=== PATIENT | female | born 1965 | race Native Hawaiian/Other Pacific Islander ===

== ENCOUNTER 2021-04-24 11:26 | Emergency (ER) | payer OTHER ==
--- NOTE | 2021-04-24 12:30 | XRAY Report ---
PROCEDURE: Elbow 3 View LT INDICATIONS: trauma/pain TECHNIQUE: 3 views of the elbow were acquired. COMPARISON: None FINDINGS: Bones: No fractures or dislocations. No suspicious bony lesions. Soft tissues: No elbow joint effusion. No suspicious soft tissue calcifications. IMPRESSION: No evidence acute bony abnormality of the left elbow. If clinical suspicion and/or symptoms persist, further assessment with repeat plain films or advanced imaging (e.g., CT, MRI, or bone scan) may be helpful for further assessment. Reviewed by: Balta Delgado MD on 04/24/2021 12:29 PM PDT Approved by: Balta Delgado MD on 04/24/2021 12:29 PM PDT Station ID: [id number]
--- NOTE | 2021-04-24 13:07 | ED Physician Documentation ---
History of Present Illness - Stated complaint Stated Complaint: GLF/LT ARM PX - Chief complaint Chief Complaint: Trauma Ext - History obtained from History obtained from: Patient - History of Present Illness Timing: How many days ago (3) Pain level max: 6 Pain level now: 3 - Additonal information Additional information: Patient is a 56-year-old female who works at the [email or web address], she states that she was walking when she tripped over a rolled up mat and landed on the floor. She states she has a bruise to her left elbow and a bruise to her right leg. She states worse with movement, better with rest. It occurred 3 days ago. Her work told her to come and start the L&I paperwork today. No head, neck, back pain. No loss of consciousness. No vomiting. Review of Systems Constitutional: denies: Fever, Chills GI: denies: Vomiting, Diarrhea Skin: denies: Rash Musculoskeletal: denies: Neck pain, Back pain Neurologic: denies: Focal weakness, Numbness, Confused, Headache, Head injury PD PAST MEDICAL HISTORY - Past Medical History Past Medical History: No - Past Surgical History Past Surgical History: No - Present Medications Home Medications: Ambulatory Orders Medication Instructions Recorded Confirmed metFORMIN [Glucophage] 500 mg PO DAILY 04/24/21 04/24/21 - Allergies Allergies/Adverse Reactions: Allergies Allergy/AdvReac Type Severity Reaction Status Date / Time No Known Drug Allergies Allergy Verified 04/24/21 11:46 - Living Situation Living Situation: reports: With family Living Arrangement: reports: At home - Social History Does the pt have substance abuse?: No - Family History Family history: reports: Non contributory PD ED PE NORMAL - Vitals Vital signs reviewed: Yes - General General: Alert and oriented X 3, No acute distress - HEENT HEENT: Moist mucous membranes - Neck Neck: Supple, no meningeal sign - Cardiac Cardiac: RRR - Respiratory Respiratory: No respiratory distress, Clear bilaterally - Abdomen Abdomen: Soft, Non tender, Non distended - Back Back: No spinal TTP - Derm Derm: Warm and dry - Extremities Extremities: Other (Mild ecchymosis and an abrasion to the left elbow. Full range of motion without pain. Patient also has a small area of contusion to the right medial calf. No bony tenderness. Normal exam of the knee.) - Neuro Neuro: Alert and oriented X 3 - Psych Psych: Normal mood, Normal affect Results - Vitals Vitals: Vital Signs - 24 hr 04/24/21 04/24/21 11:40 13:10 Temperature 36.0 C L 36.4 C L Heart Rate 55 L 62 Respiratory 18 16 Rate Blood Pressure 145/102 H 147/85 H O2 Saturation 98 97 Oxygen O2 Source Room air - Rads (name of study) Left elbow x-ray Radiology: Final report received, EMP read contemporaneously, See rad report (No acute abnormality) PD MEDICAL DECISION MAKING - ED course Complexity details: reviewed results, re-evaluated patient, considered differential, d/w patient ED course: Patient is ambulating without difficulty. Normal gait. No limp. Left elbow x- ray is negative. Using the arm freely. L&I paperwork filled out. We will have the patient return to work in 2 to 3 days when the muscle soreness has resolved. Patient counseled regarding signs and symptoms for which I believe and urgent re-evaluation would be necessary. Patient with good understanding of and agreement to plan and is comfortable going home at this time This document was made in part using voice recognition software. While efforts are made to proofread this document, sound alike and grammatical errors may occur. Departure - Departure Disposition: 01 Home, Self Care Clinical Impression: Contusion of soft tissue Fall Qualifiers: Encounter type: initial encounter Qualified Code(s): W19.XXXA - Unspecified fall, initial encounter Condition: Good Instructions: ED Contusion Soft Tissue Follow-Up: your,doctor in 1 week [Other] Comments: You can continue motrin and tylenol as needed for pain. Follow up with your doctor for further care. Return if you worsen. Forms: Activity restrictions
[2021-04-24 13:11] VITALS: BP 147/85
== END 2021-04-24 13:22 | disposition home or self-care (01) ==
LOC: ED 11:26
DX: S80.11XA Contusion of right lower leg, initial encounter (principal); S50.312A Abrasion of left elbow, initial encounter; W01.198A Fall on same level from slipping, tripping and stumbling with subsequent striking against other object, initial encounter; Y92.59 Other trade areas as the place of occurrence of the external cause; Y99.0 Civilian activity done for income or pay
CPT/HCPCS: 1040M; 73080

== ENCOUNTER 2022-08-03 09:40 | Emergency (ER) | payer MEDICAID ==
--- NOTE | 2022-08-03 09:59 | ED Physician Documentation ---
PD HPI DYSPNEA - Stated complaint Stated Complaint: SOA - Chief complaint Chief Complaint: Resp - History obtained from History obtained from: Patient - History of Present Illness Timing - onset: How many days ago, How many months ago (4 months of some couhg, deloris at night, with congestion and some dyspnea/wheeze with activity. Worse the past several days. Also h/o borderline high bp in the past.) Timing - onset during: Rest (notices more of the cough and congestion at night lying down.) Timing - duration: Months Timing - details: Intermittant Inciting event(s): No: URI, Exposure (ie smoke) Improved by: Rest Worsened by: Laying flat, Coughing Associated symptoms: Cough, Hemoptysis (last night). No: Fever, Wheezing Similar symptoms before: Has not had sx before Recently seen: Not recently seen Review of Systems Constitutional: denies: Fever, Chills, Myalgias Nose: denies: Rhinorrhea / runny nose, Congestion Throat: denies: Sore throat Cardiac: denies: Chest pain / pressure, Palpitations, Pedal edema, Calf pain Respiratory: reports: Dyspnea, Cough. denies: Wheezing Skin: denies: Rash, Lesions Musculoskeletal: denies: Extremity swelling Neurologic: denies: Focal weakness, Numbness, Headache PD PAST MEDICAL HISTORY - Past Medical History Past Medical History: Yes Cardiovascular: High cholesterol Respiratory: Asthma Neuro: None Endocrine/Autoimmune: Type 2 diabetes GI: None : None HEENT: None Psych: None Musculoskeletal: None Derm: None - Past Surgical History Past Surgical History: No Derm: Other - Present Medications Home Medications: Ambulatory Orders Medication Instructions Recorded Confirmed metFORMIN [Glucophage] 500 mg PO DAILY 04/24/21 08/03/22 Albuterol Sulf [Ventolin Hfa 2 - 3 puffs INH BID 30 Days #1 each 08/03/22 Inhaler] Cetirizine [ZyrTEC] 10 mg PO DAILY 30 Days #30 tablet 08/03/22 Fluticasone 220 Mcg [Flovent] 1 inh PO BID 60 Days #12 gm 08/03/22 Losartan Potassium 25 mg PO DAILY 30 Days #30 tablet 08/03/22 - Allergies Allergies/Adverse Reactions: Allergies Allergy/AdvReac Type Severity Reaction Status Date / Time No Known Drug Allergies Allergy Verified 08/03/22 09:53 - Social History Does the pt smoke?: No Smoking Status: Never smoker Does the pt drink ETOH?: No Does the pt have substance abuse?: No - Immunizations Immunizations are current?: No - POLST Patient has POLST: No PD ED PE NORMAL - Vitals Vital signs reviewed: Yes - General General: Alert and oriented X 3, No acute distress, Well developed/nourished - HEENT HEENT: Pharynx benign - Neck Neck: Supple, no meningeal sign, No adenopathy - Cardiac Cardiac: RRR, No murmur - Respiratory Respiratory: No respiratory distress, Clear bilaterally - Abdomen Abdomen: Soft, Non tender - Derm Derm: Normal color, Warm and dry - Extremities Extremities: No edema, No calf tenderness / cord - Neuro Neuro: Alert and oriented X 3, No motor deficit, Normal speech Results - Vitals Vitals: Oxygen O2 Source Room air - Labs Labs: Laboratory Tests 08/03/22 08/03/22 10:21 10:21 WBC 5.1 RBC 4.76 Hgb 13.2 Hct 41.4 MCV 87.0 MCH 27.7 MCHC 31.9 L RDW 13.6 Plt Count 279 MPV 9.6 Neut # (Auto) 2.5 Lymph # (Auto) 1.7 [place] # (Auto) 0.4 Eos # (Auto) 0.5 Baso # (Auto) 0.1 Absolute Nucleated RBC 0.00 Nucleated RBC % 0.0 Sodium 140 Potassium 4.2 Chloride 102 Carbon Dioxide 29 Anion Gap 9.0 BUN 19 Creatinine 0.6 Estimated GFR (MDRD) 102 Glucose 141 H Calcium 9.5 Total Bilirubin 0.7 AST 32 ALT 38 Alkaline Phosphatase 77 Total Protein 7.8 Albumin 4.0 Globulin 3.8 Albumin/Globulin Ratio 1.1 Lipase 38 - Rads (name of study) chest xray Radiology: Prelim report reviewed (no acute process), See rad report PD MEDICAL DECISION MAKING - ED course Complexity details: reviewed results, considered differential (longer term cough, congestion more likely c/w llergies/environmental though could be prison post viral cough. Has h/o elevated BP not on meds. ), d/w patient Departure - Departure Disposition: 01 Home, Self Care Clinical Impression: Persistent cough for 3 weeks or longer, Congestion of upper airway, Elevated blood pressure reading Condition: Stable Record reviewed to determine appropriate education?: Yes Instructions: ED Reactive Airway Disease, ED Hypertension New Begin Tx Prescriptions: Fluticasone 220 Mcg [Flovent] 1 inh PO BID 60 Days #12 gm Losartan Potassium 25 mg PO DAILY 30 Days #30 tablet Albuterol Sulf [Ventolin Hfa Inhaler] 2 - 3 puffs INH BID 30 Days #1 each Cetirizine [ZyrTEC] 10 mg PO DAILY 30 Days #30 tablet Comments: Your chest x-ray is clear without any signs of pneumonia, heart failure, tumors etc. Your basic blood counts and kidney function electrolytes are good. At this point I would treated as reactive airway disease/allergies with an inhaled albuterol twice daily and also every 6 hours if needed for wheeziness in addition. Also add a inhaled steroid fluticasone twice daily for 1 to 2 months. Cetirizine antihistamine daily for a month. See how much improvement you have in your congestion and cough with these medications over the next several weeks to a month. I also started you on a low-dose blood pressure medicine losartan 25 mg daily. Follow-up with your primary care when you are able to see him next for further medications/adjustments/any other testing. I sent your prescriptions to [facility] in [place]. Discharge Date/Time: 08/03/22 11:42
[2022-08-03] MEDS ORDERED: ALBUTEROL 1 PUFF INH STA (10:27)
[2022-08-03 10:30] LABS: BASOPHILS # (AUTO) 0.1 10^3/uL (0.0-0.1); EOSINOPHILS # (AUTO) 0.5 10^3/uL (0.0-0.7); EOSINOPHILS % (AUTO) 9.2 %; HCT - HEMATOCRIT 41.4 % (37.0-47.0); HGB - HEMOGLOBIN 13.2 g/dL (12.0-16.0); LYMPHOCYTES # (AUTO) 1.7 10^3/uL (1.5-3.5); LYMPHOCYTES % (AUTO) 33.3 %; MEAN CORPUSCULAR HEMOGLOBIN 27.7 pg (27.0-31.0); MEAN CORPUSCULAR HGB CONC 31.9 g/dL (32.0-36.0); MEAN PLATELET VOLUME 9.6 fL (7.9-10.8); MONOCYTES # (AUTO) 0.4 10^3/uL (0.0-1.0); MONOCYTES % (AUTO) 8.4 %; NEUTROPHILS # (AUTO) 2.5 10^3/uL (1.5-6.6); NEUTROPHILS % (AUTO) 47.9 %; PLT - PLATELET COUNT 279 10^3/uL (130-450); RED BLOOD COUNT 4.76 10^6/uL (4.20-5.40); RED CELL DISTRIBUTION WIDTH 13.6 % (12.0-15.0); WHITE BLOOD COUNT 5.1 x10^3/uL (4.8-10.8)
[2022-08-03 10:44] LABS: ALBUMIN/GLOBULIN RATIO 1.1 (1.0-2.2); BILIRUBIN,TOTAL 0.7 mg/dL (0.2-1.0); CALCIUM 9.5 mg/dL (8.5-10.3); CREATININE 0.6 mg/dL (0.4-1.0); POTASSIUM 4.2 mmol/L (3.5-5.0); TOTAL PROTEIN 7.8 g/dL (6.7-8.2)
--- NOTE | 2022-08-03 10:53 | XRAY Report ---
PROCEDURE: Chest 1 View X-Ray INDICATIONS: chest pain TECHNIQUE: One view of the chest was acquired. COMPARISON: None. FINDINGS: Surgical changes and devices: None. Lungs and pleura: No pleural effusions or pneumothorax. Lungs are clear. Mediastinum: Mediastinal contours appear normal. Heart size is normal. Bones and chest wall: No suspicious bony lesions. Overlying soft tissues appear unremarkable. IMPRESSION: No acute cardiopulmonary abnormality identified. CT chest could be considered for further evaluation. Reviewed by: Elan Hutcihns MD on 08/03/2022 10:51 AM [facility] Approved by: Elan Hutchins MD on 08/03/2022 10:51 AM [facility] Station ID: [id number]
[2022-08-03 11:43] VITALS: BP 147/88
== END 2022-08-03 11:42 | disposition home or self-care (01) ==
LOC: ED 09:40
DX: R05.3 Chronic cough (principal); R09.81 Nasal congestion; R03.0 Elevated blood-pressure reading, without diagnosis of hypertension
CPT/HCPCS: 36415; 80053; 83690; 85025; 94640; 94664; 99282; 99284

== ENCOUNTER 2022-08-10 07:15 | Emergency (ER) | payer MEDICAID ==
[2022-08-10 07:33] VITALS: BP 148/89
[2022-08-10 07:59] LABS: BASOPHILS # (AUTO) 0.1 10^3/uL (0.0-0.1); BASOPHILS % (AUTO) 0.5 %; EOSINOPHILS # (AUTO) 0.2 10^3/uL (0.0-0.7); EOSINOPHILS % (AUTO) 1.8 %; HCT - HEMATOCRIT 39.7 % (37.0-47.0); HGB - HEMOGLOBIN 12.4 g/dL (12.0-16.0); LYMPHOCYTES # (AUTO) 1.9 10^3/uL (1.5-3.5); LYMPHOCYTES % (AUTO) 15.8 %; MEAN CORPUSCULAR HEMOGLOBIN 26.9 pg (27.0-31.0); MEAN CORPUSCULAR HGB CONC 31.2 g/dL (32.0-36.0); MEAN CORPUSCULAR VOLUME 86.1 fL (81.0-99.0); MEAN PLATELET VOLUME 9.7 fL (7.9-10.8); MONOCYTES # (AUTO) 1.2 10^3/uL (0.0-1.0); MONOCYTES % (AUTO) 9.8 %; NEUTROPHILS # (AUTO) 8.4 10^3/uL (1.5-6.6); NEUTROPHILS % (AUTO) 71.8 %; PLT - PLATELET COUNT 270 10^3/uL (130-450); RED BLOOD COUNT 4.61 10^6/uL (4.20-5.40); WHITE BLOOD COUNT 11.8 x10^3/uL (4.8-10.8)
[2022-08-10 08:09] LABS: BILIRUBIN,URINE NEGATIVE (NEGATIVE); GLUCOSE, URINE (UA) NEGATIVE (NEGATIVE); KETONES,URINE (UA) NEGATIVE (NEGATIVE); LEUKOCYTE ESTERASE, URINE NEGATIVE (NEGATIVE); NITRITE,URINE NEGATIVE (NEGATIVE); OCCULT BLOOD,URINE SMALL (NEGATIVE); PROTEIN,URINE NEGATIVE (NEGATIVE); UROBILINOGEN,URINE 0.2 (NORMAL) E.U./dL (NORMAL)
[2022-08-10 08:11] LABS: CLARITY,URINE CLEAR (CLEAR)
[2022-08-10 08:13] LABS: ALBUMIN/GLOBULIN RATIO 1.1 (1.0-2.2); CALCIUM 9.2 mg/dL (8.5-10.3); CREATININE 0.6 mg/dL (0.4-1.0); POTASSIUM 4.1 mmol/L (3.5-5.0); TOTAL PROTEIN 7.7 g/dL (6.7-8.2)
[2022-08-10 08:21] LABS: BACTERIA,URINE Rare /HPF (None Seen); RBC,URINE 0-5 /HPF (0-5); SQUAMOUS EPITHELIAL CELL,UR RARE Squamous (<= Few); WBC,URINE 0-3 /HPF (0-5)
--- NOTE | 2022-08-10 08:26 | ED Physician Documentation ---
PD HPI ABD PAIN - Stated complaint Stated Complaint: LT SIDE ABD PX - Chief complaint Chief Complaint: Abd Pain - History obtained from History obtained from: Patient - History of Present Illness Timing - onset: How many days ago (3), How many years ago Timing - duration: Days (3) Timing - details: Gradual onset Pain level max: 5 Pain level now: 5 Quality: Aching, Pain Location: Epigastric, LUQ Radiation: No: Chest, , Lower back, Left flank, Left shoulder, Right flank, Right shoulder, Upper back Improved by: Other (nothing) Worsened by: Eating, Breathing, Palpation Associated symptoms: Nausea. No: Fever, Vomiting, Hematemesis, Diarrhea, Constipation, Melena, Hematochezia, Dysuria, Hematuria, Chest pain Similar symptoms before: Has not had sx before Recently seen: Not recently seen Review of Systems Constitutional: denies: Fever, Chills Respiratory: denies: Cough GI: denies: Vomiting, Diarrhea Skin: denies: Rash Musculoskeletal: denies: Neck pain, Back pain Neurologic: denies: Headache PD PAST MEDICAL HISTORY - Past Medical History Cardiovascular: High cholesterol Respiratory: Asthma Neuro: None Endocrine/Autoimmune: Type 2 diabetes GI: None : None HEENT: None Psych: None Musculoskeletal: None Derm: None - Past Surgical History Past Surgical History: No Derm: Other - Present Medications Home Medications: Ambulatory Orders Medication Instructions Recorded Confirmed metFORMIN [Glucophage] 500 mg PO DAILY 04/24/21 08/03/22 Albuterol Sulf [Ventolin Hfa 2 - 3 puffs INH BID 30 Days #1 each 08/03/22 Inhaler] Cetirizine [ZyrTEC] 10 mg PO DAILY 30 Days #30 tablet 08/03/22 Fluticasone 220 Mcg [Flovent] 1 inh PO BID 60 Days #12 gm 08/03/22 Losartan Potassium 25 mg PO DAILY 30 Days #30 tablet 08/03/22 Amox/Clav 875/125 [Augmentin] 1 each PO Q8H #30 tablet 08/10/22 - Allergies Allergies/Adverse Reactions: Allergies Allergy/AdvReac Type Severity Reaction Status Date / Time No Known Drug Allergies Allergy Verified 08/10/22 07:32 - Social History Does the pt smoke?: No Smoking Status: Never smoker Does the pt drink ETOH?: No Does the pt have substance abuse?: No - Immunizations Immunizations are current?: No - POLST Patient has POLST: No PD ED PE NORMAL - Vitals Vital signs reviewed: Yes - General General: Alert and oriented X 3, No acute distress, Well developed/nourished - HEENT HEENT: Moist mucous membranes - Neck Neck: Supple, no meningeal sign - Cardiac Cardiac: RRR, Strong equal pulses - Respiratory Respiratory: No respiratory distress, Clear bilaterally - Abdomen Abdomen: Soft, Non distended, Other (Tender palpation epigastric without peritoneal signs.) - Back Back: No CVA TTP, No spinal TTP - Derm Derm: Warm and dry - Extremities Extremities: No edema, No calf tenderness / cord - Neuro Neuro: Alert and oriented X 3 - Psych Psych: Normal mood, Normal affect Results - Vitals Vitals: Vital Signs - 24 hr 08/10/22 07:30 Temperature 36.5 C Heart Rate 74 Respiratory 14 Rate Blood Pressure 148/89 H O2 Saturation 97 Oxygen O2 Source Room air - Labs Labs: Laboratory Tests 08/10/22 08/10/22 08/10/22 07:45 07:52 07:52 WBC 11.8 H RBC 4.61 Hgb 12.4 Hct 39.7 MCV 86.1 MCH 26.9 L MCHC 31.2 L RDW 14.0 Plt Count 270 MPV 9.7 Neut # (Auto) 8.4 H Lymph # (Auto) 1.9 [place] # (Auto) 1.2 H Eos # (Auto) 0.2 Baso # (Auto) 0.1 Absolute Nucleated RBC 0.00 Nucleated RBC % 0.0 Sodium 137 Potassium 4.1 Chloride 102 Carbon Dioxide 26 Anion Gap 9.0 BUN 14 Creatinine 0.6 Estimated GFR (MDRD) 102 Glucose 126 H Calcium 9.2 Total Bilirubin 1.0 AST 22 ALT 29 Alkaline Phosphatase 78 Total Protein 7.7 Albumin 4.0 Globulin 3.7 Albumin/Globulin Ratio 1.1 Lipase 36 Urine Color YELLOW Urine Clarity CLEAR Urine pH 6.0 Ur Specific [place] 1.020 Urine Protein NEGATIVE Urine Glucose (UA) NEGATIVE Urine Ketones NEGATIVE Urine Occult Blood SMALL H Urine Nitrite NEGATIVE Urine Bilirubin NEGATIVE Urine Urobilinogen 0.2 (NORMAL) Ur Leukocyte Esterase NEGATIVE Urine RBC 0-5 Urine WBC 0-3 Ur Squamous Epith Cells RARE Squamous Urine Bacteria Rare Ur Microscopic Review INDICATED Urine Culture Comments NOT INDICATED - Rads (name of study) CT abdomen pelvis Radiology: Final report received, EMP read contemporaneously, See rad report PD MEDICAL DECISION MAKING - ED course Complexity details: reviewed results, re-evaluated patient, considered differential, d/w patient ED course: 57-year-old female presents the emergency department left-sided abdominal pain. CT scan shows diverticulitis. Discussed risks and benefits of treatment with antibiotics. Patient elects to take the antibiotics. We will place her on antibiotics for home. Understands the risks of C. difficile. Also informed of the left breast nodule incidentally found on CT. She will follow-up with her doctor for further care of this. Patient is well-appearing, nontoxic. Afebrile. Declines pain medication or nausea medication for home. Patient counseled regarding signs and symptoms for which I believe and urgent re-evaluat ion would be necessary. Patient with good understanding of and agreement to plan and is comfortable going home at this time This document was made in part using voice recognition software. While efforts are made to proofread this document, sound alike and grammatical errors may occur. Departure - Departure Disposition: 01 Home, Self Care Clinical Impression: Diverticulitis Condition: Good Instructions: ED Diverticulitis Follow-Up: your,doctor in 1 week [Other] Prescriptions: Amox/Clav 875/125 [Augmentin] 1 each PO Q8H #30 tablet Comments: Your prescriptions were sent to [facility] in [place]. Please follow-up with your doctor for further care. This appears to be diverticulitis on your CT scan. You also have what appears to be a small nodule at the left lateral teo ast, partially visualized, it is recommended that you have a mammogram and/or ultrasound as ordered by your doctor. Please return if you worsen. IMPRESSION: 1. Descending colon diverticulitis. No abscess. 2. Small nodule at the left lateral breast partially visualized. This could represent a benign finding such as cyst or lymph node. However, mass cannot be excluded. Recommend diagnostic mammogram and possible ultrasound. Discharge Date/Time: 08/10/22 10:51
[2022-08-10] MEDS ORDERED: iohexoL-300 100 ML VIAL ONE (09:21)
[2022-08-10] MEDS: iohexoL-300 100 ML VIAL IVP ONE (09:49)
--- NOTE | 2022-08-10 10:05 | CT Report ---
PROCEDURE: ABDOMEN/PELVIS W INDICATIONS: epigastric/L sided abd pain x3days CONTRAST: 100 cc Omnipaque 300. TECHNIQUE: After the administration of intravenous contrast, 5 mm thick sections acquired from the diaphragms to the symphysis. 5 mm thick coronal and sagittal reformats were acquired. For radiation dose reducti on, the following was used: automated exposure control, adjustment of mA and/or kV according to christopher ent size. COMPARISON: CXR 08/03/2022 FINDINGS: Image quality: Excellent. ABDOMEN: Lung bases: No pleural effusion. Left basilar atelectasis. Heart size is normal. Small nodule at the left lateral breast partially visualized measuring 0.6 cm, (6/). Solid organs: Liver and spleen are normal in size and enhancement. No focal lesion. Gallbladder is u nremarkable. Biliary system is non dilated. Pancreas enhances normally. No adrenal nodules. Kidne ys demonstrate normal size and enhancement, without hydronephrosis. Peritoneum and bowel: Diverticulosis. Stranding about the descending colon, (3/43). There are diverti culi at this site. No fluid collection. The appendix is not dilated. No small bowel obstruction. No a scites. No pneumoperitoneum. Nodes and vessels: No retroperitoneal or mesenteric adenopathy by size criteria. Aorta and inferior vena cava are normal in size. Miscellaneous: No ventral hernias. PELVIS: Genitourinary: Bladder wall thickness is normal. Anteverted uterus. Miscellaneous: No inguinal hernias or adenopathy. Bones: No suspicious bony lesions. Sclerosis at the SI joints. Suspect iliac is iliacus condensans. No vertebral body compression fractures. Vertebral body osteophytes. IMPRESSION: 1. Descending colon diverticulitis. No abscess. 2. Small nodule at the left lateral breast partially visualized. This could represent a benign findin g such as cyst or lymph node. However, mass cannot be excluded. Recommend diagnostic mammogram and po ssible ultrasound. Results were communicated to Dr. Hermilo Watkins at 08/10/2022 9:58 AM PST. Reviewed by: Elan Hutchins MD on 08/10/2022 10:04 AM PST Approved by: Elan Hutchins MD on 08/10/2022 10:04 AM PST Station ID: [id number]
[2022-08-10] MEDS: AMOX/CLAV 875 MG/125 MG TABLET PO STA (10:50)
== END 2022-08-10 10:51 | disposition home or self-care (01) ==
LOC: ED 07:15
DX: K57.90 Diverticulosis of intestine, part unspecified, without perforation or abscess without bleeding (principal); E11.9 Type 2 diabetes mellitus without complications; Z79.84 Long term (current) use of oral hypoglycemic drugs
CPT/HCPCS: 36415; 74177; 80053; 81001; 83690; 85025; 99284; A9270; Q9967; 81003; 87086